=== PATIENT | male | born 1965 | race Caucasian/White ===

== ENCOUNTER → 2023-05-19 09:20 | Outpatient (REF) | payer BC, SELFPAY ==
[2023-05-19 10:48] LABS: % Basophils 0.5 % (0-2); % Immature Granulocytes 0.5 % (0-0.5); % Lymphocytes 10.6 % (20.5-51.1); % Neutrophils 71.4 % (42.2-75.2); Absolute Eosinophils 0.1 10^3/uL (0-0.7); Absolute Lymphocytes 0.7 10^3/uL (1.2-3.4); Absolute Neutrophils 4.7 10^3/uL (1.4-6.5); Hematocrit 29.5 % (39.0-52.0); Hemoglobin 8.9 g/dL (13.0-18.0); Mean Corp Hgb Conc. 30.2 g/dL (33.0-37.0); Mean Corpuscular Volume 92.8 fL (80.0-94.0); Mean Platelet Volume 9.4 fL (7.4-10.4); Nucleated Red Blood Cells % 0 % (-); Platelet Count 304 10^3/uL (130-400); Red Blood Cell Count 3.18 10^6/uL (4.70-6.10); Red Cell Dist. Width 15.4 % (11.5-14.5); White Blood Cell Count 6.6 10^3/uL (4.8-10.8)
[2023-05-19 10:53] LABS: Albumin 4.3 g/dl (3.5-5.0); Blood Urea Nitrogen 68 mg/dl (9-20); Calcium 8.9 mg/dl (8.4-10.2); Carbon Dioxide 14 mmol/L (22-30); Chloride 107 mmol/L (98-107); Glucose 87 mg/dl (70-99); HDL Cholesterol 44 mg/dl; LDL Cholesterol, Calculated 54 mg/dl; Magnesium 1.9 mg/dl (1.6-2.3); Phosphorus 5.5 mg/dl (2.5-4.5); Potassium 4.8 mmol/L (3.5-5.1); Sodium 132 mmol/L (135-145); Total Cholesterol 117 mg/dl (50-199); Triglyceride 97 mg/dl (10-149); Very Low Density Lipoprotein 19 mg/dl (0-30); eGFR 28.87
[2023-05-19 10:59] LABS: Vitamin D, 25-OH*** 63.1 ng/mL (30-80)
[2023-05-19 12:35] LABS: Protein/creatinine Ratio 1.3; Urine Protein 31 mg/dl
[2023-05-21 14:48] LABS: BK Qnt NAAT IU/mL, Plasma Not Detected; BK Qnt NAAT Interp, Plasma Not Detected (Not Detected); BK Qnt NAAT log IU/mL, Plasma Not Detected log IU/mL
[2023-05-22 10:01] LABS: Intact PTH 140.6 pg/ml (13.6-85.8)
== END ==
LOC: REG 09:20
PROVIDERS: ATTENDING PHYSICIAN Student in an Organized Health Care Education/Training Program; FAMILY PHYSICIAN Family Medicine
DX: D84.9 Immunodeficiency, unspecified (principal); R80.1 Persistent proteinuria, unspecified; Z94.0 Kidney transplant status; E55.9 Vitamin D deficiency, unspecified; N25.0 Renal osteodystrophy
CPT/HCPCS: 36415; 80061; 80069; 82306; 82570; 83735; 83970; 84156; 85025; 87799

== ENCOUNTER → 2023-06-28 12:02 | Outpatient (REF) | payer BC, SELFPAY ==
[2023-06-28 13:37] LABS: Urine Albumin 1+ (Neg - Trace); Urine Bilirubin Negative (Negative); Urine Character Clear (Clear); Urine Color Yellow; Urine Glucose Negative (Negative); Urine Ketone Negative (Negative); Urine Leukocyte 2+ (Negative); Urine Nitrite Positive (Negative); Urine Occult Blood Trace (Negative); Urine Specific Gravity 1.005 (<1.030); Urine Urobilinogen Negative (Neg - 1+)
[2023-06-28 14:04] LABS: Urine Bacteria Few (Negative); Urine Red Blood Cell 0-2 /HPF (0-2); Urine White Cell 21-25 /HPF (0-5)
[2023-06-28 14:31] LABS: Albumin 4.5 g/dl (3.5-5.0); Blood Urea Nitrogen 75 mg/dl (9-20); Calcium 9.5 mg/dl (8.4-10.2); Carbon Dioxide 24 mmol/L (22-30); Chloride 103 mmol/L (98-107); Glucose 94 mg/dl (70-99); Phosphorus 5.2 mg/dl (2.5-4.5); Potassium 4.7 mmol/L (3.5-5.1); Sodium 136 mmol/L (135-145); eGFR 25.05
== END ==
LOC: REG 12:02
PROVIDERS: ATTENDING PHYSICIAN Family Medicine
DX: R30.0 Dysuria (principal)
CPT/HCPCS: 36415; 80069; 81003; 81015; 87086

== ENCOUNTER → 2023-07-08 12:20 | Outpatient (REF) | payer BC, SELFPAY ==
[2023-07-08 13:40] LABS: % Basophils 0.9 % (0-2); % Eosinophils 1.5 % (0-6); % Immature Granulocytes 0.6 % (0-0.5); % Lymphocytes 14.1 % (20.5-51.1); % Monocytes 14.7 % (1.7-9.3); % Neutrophils 68.2 % (42.2-75.2); Absolute Basophils 0.1 10^3/uL (0-0.2); Absolute Eosinophils 0.1 10^3/uL (0-0.7); Absolute Lymphocytes 0.9 10^3/uL (1.2-3.4); Absolute Neutrophils 4.6 10^3/uL (1.4-6.5); Hematocrit 29.7 % (39.0-52.0); Mean Corp Hgb Conc. 30.3 g/dL (33.0-37.0); Mean Corpuscular Hgb 27.4 pg (27.0-31.0); Mean Corpuscular Volume 90.3 fL (80.0-94.0); Mean Platelet Volume 9.4 fL (7.4-10.4); Nucleated Red Blood Cells % 0 % (-); Platelet Count 349 10^3/uL (130-400); Red Blood Cell Count 3.29 10^6/uL (4.70-6.10); Red Cell Dist. Width 16.6 % (11.5-14.5); White Blood Cell Count 6.7 10^3/uL (4.8-10.8)
[2023-07-08 13:55] LABS: Albumin 4.3 g/dl (3.5-5.0); Blood Urea Nitrogen 54 mg/dl (9-20); Calcium 9.3 mg/dl (8.4-10.2); Carbon Dioxide 23 mmol/L (22-30); Chloride 104 mmol/L (98-107); Glucose 94 mg/dl (70-99); HDL Cholesterol 38 mg/dl; LDL Cholesterol, Calculated 31 mg/dl; Magnesium 2.1 mg/dl (1.6-2.3); Phosphorus 4.4 mg/dl (2.5-4.5); Potassium 5.1 mmol/L (3.5-5.1); Sodium 135 mmol/L (135-145); Total Cholesterol 86 mg/dl (50-199); Triglyceride 86 mg/dl (10-149); Very Low Density Lipoprotein 17 mg/dl (0-30); eGFR 26.16
[2023-07-08 14:11] LABS: Vitamin D, 25-OH*** 86.5 ng/mL (30-80)
[2023-07-10 18:08] LABS: Intact PTH 151.3 pg/ml (13.6-85.8)
== END ==
LOC: REG 12:20
PROVIDERS: ATTENDING PHYSICIAN Internal Medicine Nephrology; FAMILY PHYSICIAN Family Medicine
DX: Z94.0 Kidney transplant status (principal); E55.9 Vitamin D deficiency, unspecified; N25.0 Renal osteodystrophy
CPT/HCPCS: 36415; 80061; 80069; 82306; 83735; 83970; 85025

== ENCOUNTER → 2023-07-28 13:03 | Outpatient (REF) | payer BC, SELFPAY ==
[2023-07-28 14:15] LABS: % Basophils 0.8 % (0-2); % Eosinophils 2.1 % (0-6); % Immature Granulocytes 0.3 % (0-0.5); % Lymphocytes 11.9 % (20.5-51.1); % Monocytes 11.3 % (1.7-9.3); % Neutrophils 73.6 % (42.2-75.2); Absolute Basophils 0.1 10^3/uL (0-0.2); Absolute Eosinophils 0.1 10^3/uL (0-0.7); Absolute Lymphocytes 0.8 10^3/uL (1.2-3.4); Absolute Monocytes 0.7 10^3/uL (0.1-0.6); Absolute Neutrophils 4.8 10^3/uL (1.4-6.5); Hematocrit 30.1 % (39.0-52.0); Hemoglobin 8.9 g/dL (13.0-18.0); Mean Corp Hgb Conc. 29.6 g/dL (33.0-37.0); Mean Corpuscular Hgb 26.2 pg (27.0-31.0); Mean Corpuscular Volume 88.5 fL (80.0-94.0); Mean Platelet Volume 9.4 fL (7.4-10.4); Nucleated Red Blood Cells % 0 % (-); Platelet Count 325 10^3/uL (130-400); Red Cell Dist. Width 16.7 % (11.5-14.5); White Blood Cell Count 6.5 10^3/uL (4.8-10.8)
[2023-07-28 14:59] LABS: Protein/creatinine Ratio 1.9; Urine Protein 116 mg/dl
[2023-07-28 16:05] LABS: Albumin 4.1 g/dl (3.5-5.0); Blood Urea Nitrogen 68 mg/dl (9-20); Calcium 9.2 mg/dl (8.4-10.2); Carbon Dioxide 21 mmol/L (22-30); Chloride 102 mmol/L (98-107); Glucose 80 mg/dl (70-99); Iron 41 ug/dl (49-181); Phosphorus 5.3 mg/dl (2.5-4.5); Potassium 4.6 mmol/L (3.5-5.1); Sodium 136 mmol/L (135-145); eGFR 27.38
[2023-07-28 16:13] LABS: Intact PTH 167.5 pg/ml (13.6-85.8); Percent Saturation 9 % (20-50); Total Iron Binding Capacity 422 ug/dl (261-462)
== END ==
LOC: REG 13:03
PROVIDERS: ATTENDING PHYSICIAN Family Medicine
DX: D63.8 Anemia in other chronic diseases classified elsewhere (principal); Z94.0 Kidney transplant status; N18.4 Chronic kidney disease, stage 4 (severe)
CPT/HCPCS: 36415; 80069; 82570; 82728; 83540; 83550; 83970; 84156; 85025

== ENCOUNTER 2023-08-24 16:30 | Emergency (ER) | payer BC, SELFPAY ==
[2023-08-24 16:31] VITALS: BP 129/87
--- NOTE | 2023-08-24 19:17 | ED.GENMED ---
Addendum entered and electronically signed by Luis Young MD 08/24/23 20:24:
Patient with some increased oozing and was changed to a anterior packing. Good control. Start amoxicillin and close follow-up
Original Note:
History of Present Illness
General
Chief Complaint: Nose Bleed
Source: patient and spouse
Exam Limitations: none
Time Seen by Provider: 08/24/23 17:23
History of Present Illness
History of Present Illness:
Left nares epistaxis after blowing his nose. Patient is on aspirin, clopidogrel, Eliquis. History of nosebleed in March of this year. No other complaints
Phy Exam
Physical Exam
Physical Exam:
General: Nontoxic appearing in no distress
Skin: Warm and dry, no rash
Neuro: Alert, nontoxic, grossly nonfocal
Psychiatric: Good eye contact and appropriate
ENT: Mild bleeding left nares with a clot in the nares. Also clot posteriorly behind the pharynx. Source of bleeding appears to be along the mid septum.
Course
Vital Signs
Initial and Last Documented VS:
Initial Vital Signs
Temp Pulse Resp BP Pulse Ox
98.1 F 61 16 129/87 99
08/24/23 16:31 08/24/23 16:31 08/24/23 16:31 08/24/23 16:31 08/24/23 16:31
Last Documented Vital Signs
Temp Pulse Resp BP Pulse Ox
98.1 F 61 16 129/87 99
08/24/23 16:31 08/24/23 16:31 08/24/23 16:31 08/24/23 16:31 08/24/23 16:31
Procedures
Nosebleed
Drug treatment: Epinephrine
Treatment: Silver nitrate cautery and Merocel packing
Post treatment bleeding: other (Very minimal discoloration of the Merisel)
*Critical Care Note
Total Time (30-74mins, 75-104mins- exclusive of procedures): Not Applicable
Update Note
Update Note:
Dr. Kraft was actually here with another patient. Looked at the Mirasol. Joint decision with the patient and family elected to leave it alone. Will follow-up closely
ED Attending Note
-
Portions of this chart may have been created with voice recognition software.� Occasional wrong word or��sound alike� substitutions may have occurred due to the inherent limitations of voice recognition software.
Discharge Plan
Departure
Patient Disposition: Home (Routine Discharge)
Date of Disposition: 08/24/23
Time of Disposition: 19:17
Patient with high blood pressure during this ER visit?: Yes
Discharge Problem:
Left nares epistaxis
Instructions: Nosebleeds (DC), BLOOD PRESSURE
Prescriptions:
No Action
doxycycline monohydrate 100 mg capsule
100 mg PO BID Qty: 10 1RF
Referrals:
Evans Galdamez MD [Family Provider] -
Mesfin Morris MD [Active] - Tomorrow
Activity Restrictions/Additional Instructions:
Call your ENT tomorrow for close follow-up. Packing removal in 2 to 3 days
Interventions
Interventions:
*General Assessment Last Done: 08/24/23 16:31
*ED COVID-19 Vaccine History Last Done: 08/24/23 16:31
ED-EENT Assessment Last Done: 08/24/23 17:02
Discharge Date and Time
Print Language: MEXICAN
[2023-08-24] MEDS: AMOXIL 500 MG PO (20:25)
[2023-08-24 20:57] VITALS: BP 121/69
== END 2023-08-24 20:30 | disposition home or self-care (01) ==
LOC: EMR 16:30
PROVIDERS: EMERGENCY PHYSICIAN Emergency Medicine; FAMILY PHYSICIAN Family Medicine
DX: R04.0 Epistaxis (principal); R03.0 Elevated blood-pressure reading, without diagnosis of hypertension; Z79.82 Long term (current) use of aspirin; Z79.01 Long term (current) use of anticoagulants; Z88.2 Allergy status to sulfonamides; Z88.8 Allergy status to other drugs, medicaments and biological substances; Z91.041 Radiographic dye allergy status
CPT/HCPCS: 99283; 30901

== ENCOUNTER 2023-08-27 07:48 | Emergency (ER) | payer BC, SELFPAY ==
[2023-08-27 07:50] VITALS: BP 124/83
--- NOTE | 2023-08-27 08:24 | ED.GENMED ---
History of Present Illness
General
Chief Complaint: Nose Bleed
Source: patient
Exam Limitations: none
Time Seen by Provider: 08/27/23 08:14
History of Present Illness
History of Present Illness:
58-year-old male on aspirin Plavix and Eliquis times for recurrent nosebleed. He was here 2 days ago had the left side of the nose packed with the balloon. He notes the bleeding started out of the right side this morning at 630. He states it was
bleeding on the way here but at the moment seems to have slowed down. He denies any injury. No other complaints at this time. He was due to see ENT today
Phy Exam
Physical Exam
Physical Exam:
General: Well-appearing male no acute respiratory distress
HEENT: Normocephalic atraumatic left nasal cavity packed with the balloon. Dried blood in the right nasal cavity. Mild amount of old appearing blood in the posterior pharynx
Extremities: No cyanosis
Course
Vital Signs
Initial and Last Documented VS:
Initial Vital Signs
Temp Pulse Resp BP Pulse Ox
97.6 F 61 18 124/83 96
08/27/23 07:50 08/27/23 07:50 08/27/23 07:50 08/27/23 07:50 08/27/23 07:50
Last Documented Vital Signs
Temp Pulse Resp BP Pulse Ox
97.6 F 61 18 124/83 96
08/27/23 07:50 08/27/23 07:50 08/27/23 07:50 08/27/23 07:50 08/27/23 07:50
MDM/Problems Addressed
Differential Diagnosis Includes:
Patient had bleeding on the right side of nose when he has left side of his nose packed. On my exam, currently there is no bleeding. Patient was given some water to wash out his throat. Will continue to observe
*Critical Care Note
Total Time (30-74mins, 75-104mins- exclusive of procedures): Not Applicable
Update Note
Update Note:
Patient reexamined. No further bleeding. He has been upright without any bleeding. He has an appointment within the hour for ENT. I think he is stable for follow-up with them. No intervention at this time
ED Attending Note
-
Portions of this chart may have been created with voice recognition software.� Occasional wrong word or��sound alike� substitutions may have occurred due to the inherent limitations of voice recognition software.
Discharge Plan
Departure
Patient Disposition: Home (Routine Discharge)
Date of Disposition: 08/27/23
Time of Disposition: 09:01
Patient with high blood pressure during this ER visit?: No
Discharge Problem:
Epistaxis
Prescriptions:
No Action
doxycycline monohydrate 100 mg capsule
100 mg PO BID Qty: 10 1RF
amoxicillin 500 mg capsule
500 mg PO TID Qty: 21 0RF
Referrals:
Evans Galdamez MD [Family Provider] -
Activity Restrictions/Additional Instructions:
Please return if needed otherwise keep your appointment with ENT as scheduled
Discharge Date and Time
Print Language: PORTUGUESE
== END 2023-08-27 09:41 | disposition home or self-care (01) ==
LOC: EMR 07:48
PROVIDERS: EMERGENCY PHYSICIAN Student in an Organized Health Care Education/Training Program; FAMILY PHYSICIAN Family Medicine
DX: R04.0 Epistaxis (principal); Z79.01 Long term (current) use of anticoagulants
CPT/HCPCS: 99282

== ENCOUNTER 2023-09-27 18:08 | Emergency (ER) | payer BC, SELFPAY ==
[2023-09-27 18:09] VITALS: BP 128/87
[2023-09-27 18:39] VITALS: BMI 24.8
--- NOTE | 2023-09-27 19:01 | ED.GENMED ---
History of Present Illness
<Verena Beltre MD, Resident - Last Filed: 09/27/23 19:26>
General
Chief Complaint: Nose Bleed
Time Seen by Provider: 09/27/23 19:00
History of Present Illness
History of Present Illness:
The patient is a 58 year old male with a PMH of 5 kidney tx( 5 times) and AF who presented to ED today with a nose bleeding. his nose bleeding started around 5.30 pm from the right nostril. He denies any injury. No other complaints at this time.
He was seen by ENT on 08/27/23 for repeating nose bleedings and was catheterized. On examination he was not actively bleeding.
If applicable-neuro sx onset
Date of onset of symptoms: 09/27/23
Phy Exam
<Verena Beltre MD, Resident - Last Filed: 09/27/23 19:26>
Physical Exam
Physical Exam:
Blood was seen in his right nasal nostril and scar of catheterization on the anterior septum on the right side. when patient was seen, his nose was not actively bleeding.
General Physical Exam
General Presentation: no apparent distress
General age: appears older than age
General Skin: warm and dry
General Mental: alert
General Hydration: appears well hydrated
ENT Exam
ENT Exam: other
Additional ENT: Right nasal nostril blood ( dred) no active bleeding
Pulmonary Exam
Pulmonary Exam: no respiratory distress
Neurological Exam
Neurological Exam: alert and oriented x3
Course
<Verena Beltre MD, Resident - Last Filed: 09/27/23 19:26>
Vital Signs
Initial and Last Documented VS:
Initial Vital Signs
Temp Pulse Resp BP Pulse Ox
97.8 F 71 20 128/87 91
09/27/23 18:09 09/27/23 18:09 09/27/23 18:09 09/27/23 18:09 09/27/23 18:09
Last Documented Vital Signs
Temp Pulse Resp BP Pulse Ox
97.8 F 71 20 128/87 91
09/27/23 18:09 09/27/23 18:09 09/27/23 18:09 09/27/23 18:09 09/27/23 18:09
<Darvin Maldonado DO - Last Filed: 09/27/23 20:01>
Vital Signs
Initial and Last Documented VS:
Initial Vital Signs
Temp Pulse Resp BP Pulse Ox
97.8 F 71 20 128/87 91
09/27/23 18:09 09/27/23 18:09 09/27/23 18:09 09/27/23 18:09 09/27/23 18:09
Last Documented Vital Signs
Temp Pulse Resp BP Pulse Ox
97.8 F 71 20 128/87 91
09/27/23 18:09 09/27/23 18:09 09/27/23 18:09 09/27/23 18:09 09/27/23 18:09
Procedures
<Darvin Maldonado DO - Last Filed: 09/27/23 20:01>
Nosebleed
Drug treatment: Epinephrine
Treatment: local pressure applied and Silver nitrate cautery
Post treatment bleeding: none- good control
<Darvin Maldonado DO - Last Filed: 09/27/23 20:01>
*Critical Care Note
Total Time (30-74mins, 75-104mins- exclusive of procedures): Not Applicable
<Darvin Maldonado DO - Last Filed: 09/27/23 20:01>
Update Note
Update Note:
good control after epi and silver nitrate
ED Attending Note
<Verena Beltre MD, Resident - Last Filed: 09/27/23 19:26>
-
Portions of this chart may have been created with voice recognition software.� Occasional wrong word or��sound alike� substitutions may have occurred due to the inherent limitations of voice recognition software.
<Darvin Maldonado, DO - Last Filed: 09/27/23 20:01>
ED Attending Note
Patient seen and examined by attending physician: Yes
I performed a history and physical exam of patient and discussed management with resident, I reviewed resident's note and agree with documented findings and plan of care.: Yes
ED Attending Note:
seen with resident
Atraumatic recurrent right-sided nosebleeds seen ENT previously for cautery uses Eliquis and aspirin, has dry nose been using nasal spray and saline, oozing from his right lateral nose, cotton pledget with epinephrine placed will try silver nitrate
patient and family updated
Discharge Plan
Departure
Patient Disposition: Home (Routine Discharge)
Date of Disposition: 09/27/23
Time of Disposition: 20:01
Patient with high blood pressure during this ER visit?: No
Condition: Good
Discharge Problem:
Bleeding nose
Instructions: Nosebleeds (DC)
Prescriptions:
No Action
doxycycline monohydrate 100 mg capsule
100 mg PO BID Qty: 10 1RF
amoxicillin 500 mg capsule
500 mg PO TID Qty: 21 0RF
Referrals:
Evans Galdamez MD [Family Provider] -
Mesfin Morris MD [Active] - Follow up in 1 week
Interventions
Interventions:
*Risk Screen - Suicide Last Done: 09/27/23 18:09
*General Assessment Last Done: 09/27/23 18:09
*Neglect/Abuse Screening Last Done: 09/27/23 18:09
ED- Fall Risk Assessment Last Done: 09/27/23 19:30
*ED COVID-19 Vaccine History Last Done: 09/27/23 18:39
ED-EENT Assessment Last Done: 09/27/23 19:05
Discharge Date and Time
Print Language: [place]
== END 2023-09-27 20:28 | disposition home or self-care (01) ==
LOC: EMR 18:08
PROVIDERS: EMERGENCY PHYSICIAN Emergency Medicine; FAMILY PHYSICIAN Family Medicine
DX: R04.0 Epistaxis (principal); Z79.02 Long term (current) use of antithrombotics/antiplatelets
CPT/HCPCS: 99282; 30901

== ENCOUNTER → 2023-10-06 08:15 | Outpatient (REF) | payer BC, SELFPAY ==
[2023-10-06 09:58] LABS: % Basophils 0.7 % (0-2); % Eosinophils 1.2 % (0-6); % Immature Granulocytes 0.4 % (0-0.5); % Lymphocytes 12.6 % (20.5-51.1); % Monocytes 15.1 % (1.7-9.3); Absolute Eosinophils 0.1 10^3/uL (0-0.7); Absolute Lymphocytes 0.7 10^3/uL (1.2-3.4); Absolute Monocytes 0.9 10^3/uL (0.1-0.6); Absolute Neutrophils 3.9 10^3/uL (1.4-6.5); Hematocrit 31.6 % (39.0-52.0); Hemoglobin 9.6 g/dL (13.0-18.0); Mean Corp Hgb Conc. 30.4 g/dL (33.0-37.0); Mean Corpuscular Hgb 29.6 pg (27.0-31.0); Mean Corpuscular Volume 97.5 fL (80.0-94.0); Mean Platelet Volume 10.5 fL (7.4-10.4); Nucleated Red Blood Cells % 0 % (-); Platelet Count 244 10^3/uL (130-400); Red Blood Cell Count 3.24 10^6/uL (4.70-6.10); Red Cell Dist. Width 22.1 % (11.5-14.5); White Blood Cell Count 5.6 10^3/uL (4.8-10.8)
[2023-10-06 10:36] LABS: Anisocytosis 1+; Hypochromasia 1+; Normal RBC Morphology No
[2023-10-06 10:37] LABS: Acanthocytes 1+; Ovalocytes 1+; Polychromasia 1+
[2023-10-06 11:13] LABS: Blood Urea Nitrogen 46 mg/dl (9-20); Calcium 9.2 mg/dl (8.4-10.2); Carbon Dioxide 25 mmol/L (22-30); Chloride 105 mmol/L (98-107); Glucose 80 mg/dl (70-99); HDL Cholesterol 33 mg/dl; LDL Cholesterol, Calculated 56 mg/dl; Potassium 4.2 mmol/L (3.5-5.1); Sodium 141 mmol/L (135-145); Total Cholesterol 109 mg/dl (50-199); Triglyceride 103 mg/dl (10-149); Very Low Density Lipoprotein 20 mg/dl (0-30); eGFR 31.71
== END ==
LOC: REG 08:15
PROVIDERS: ATTENDING PHYSICIAN Family Medicine; OTHER PHYSICIAN Internal Medicine Advanced Heart Failure and Transplant Cardiology
DX: Z98.61 Coronary angioplasty status (principal); E78.2 Mixed hyperlipidemia; N18.4 Chronic kidney disease, stage 4 (severe)
CPT/HCPCS: 36415; 80048; 80061; 85025

== ENCOUNTER 2023-10-29 08:13 | Outpatient (RCR) | payer BC, SELFPAY | END 2023-10-29 23:59 | disposition home or self-care (01) | LOC: CRHB 08:13 | PROVIDERS: ATTENDING PHYSICIAN Internal Medicine Advanced Heart Failure and Transplant Cardiology | DX: Z95.4 Presence of other heart-valve replacement (principal) | CPT/HCPCS: 93798; G0422; G0423 ==

== ENCOUNTER → 2023-11-18 11:05 | Outpatient (REF) | payer BC, SELFPAY ==
[2023-11-18 12:03] LABS: % Immature Granulocytes 0.2 % (0-0.5); % Lymphocytes 6.6 % (20.5-51.1); % Monocytes 5.9 % (1.7-9.3); % Neutrophils 87.3 % (42.2-75.2); Absolute Lymphocytes 0.3 10^3/uL (1.2-3.4); Absolute Monocytes 0.3 10^3/uL (0.1-0.6); Absolute Neutrophils 4.5 10^3/uL (1.4-6.5); Hematocrit 31.4 % (39.0-52.0); Hemoglobin 9.7 g/dL (13.0-18.0); Mean Corp Hgb Conc. 30.9 g/dL (33.0-37.0); Mean Corpuscular Hgb 30.9 pg (27.0-31.0); Mean Platelet Volume 9.8 fL (7.4-10.4); Nucleated Red Blood Cells % 0 % (-); Platelet Count 213 10^3/uL (130-400); Red Blood Cell Count 3.14 10^6/uL (4.70-6.10); Red Cell Dist. Width 16.6 % (11.5-14.5); White Blood Cell Count 5.1 10^3/uL (4.8-10.8)
[2023-11-18 12:17] LABS: Urine Albumin Trace (Neg - Trace); Urine Bilirubin Negative (Negative); Urine Character Clear (Clear); Urine Color Yellow; Urine Glucose Negative (Negative); Urine Ketone Negative (Negative); Urine Leukocyte Negative (Negative); Urine Nitrite Negative (Negative); Urine Occult Blood Negative (Negative); Urine Specific Gravity 1.005 (<1.030); Urine Urobilinogen Negative (Neg - 1+)
[2023-11-18 12:23] LABS: NT-proBNP > 27000 pg/ml
[2023-11-18 12:49] LABS: ALT (SGPT) 45 U/L (0-50); AST (SGOT) 69 U/L (17-59); Albumin 4.3 g/dl (3.5-5.0); Alkaline Phosphatase 108 U/L (38-126); Blood Urea Nitrogen 79 mg/dl (9-20); Calcium 9.3 mg/dl (8.4-10.2); Carbon Dioxide 22 mmol/L (22-30); Chloride 98 mmol/L (98-107); Glucose 127 mg/dl (70-99); Iron 74 ug/dl (49-181); LDH 333 U/L (120-246); Magnesium 2.2 mg/dl (1.6-2.3); Phosphorus 4.5 mg/dl (2.5-4.5); Potassium 4.3 mmol/L (3.5-5.1); Sodium 137 mmol/L (135-145); Total Bilirubin 0.6 mg/dl (0.2-1.3); Total Protein 6.8 g/dl (6.3-8.2); eGFR 27.38
[2023-11-18 12:56] LABS: Protein/creatinine Ratio 1.2; Urine Protein 43 mg/dl
[2023-11-18 12:58] LABS: Percent Saturation 18 % (20-50); Total Iron Binding Capacity 409 ug/dl (261-462)
== END ==
LOC: REG 11:05
PROVIDERS: ATTENDING PHYSICIAN Internal Medicine Nephrology; FAMILY PHYSICIAN Family Medicine
DX: I35.0 Nonrheumatic aortic (valve) stenosis (principal); Z94.0 Kidney transplant status; E61.1 Iron deficiency
CPT/HCPCS: 36415; 80053; 81003; 82570; 82728; 83540; 83550; 83615; 83735; 83880; 84100; 84156; 85025

== ENCOUNTER 2023-11-26 09:05 | Outpatient (RCR) | payer BC, SELFPAY | END 2023-11-26 23:59 | disposition home or self-care (01) | LOC: CRHB 09:05 | PROVIDERS: ATTENDING PHYSICIAN Internal Medicine Advanced Heart Failure and Transplant Cardiology; FAMILY PHYSICIAN Family Medicine | DX: Z95.4 Presence of other heart-valve replacement (principal) | CPT/HCPCS: G0422; G0423 ==

== ENCOUNTER → 2023-12-21 11:09 | Outpatient (REF) | payer BC, SELFPAY ==
[2023-12-21 16:37] LABS: % Basophils 0.7 % (0-2); % Eosinophils 1.4 % (0-6); % Immature Granulocytes 0.4 % (0-0.5); % Lymphocytes 12.3 % (20.5-51.1); % Monocytes 15.3 % (1.7-9.3); % Neutrophils 69.9 % (42.2-75.2); Absolute Eosinophils 0.1 10^3/uL (0-0.7); Absolute Lymphocytes 0.7 10^3/uL (1.2-3.4); Absolute Monocytes 0.9 10^3/uL (0.1-0.6); Absolute Neutrophils 3.9 10^3/uL (1.4-6.5); Hematocrit 37.5 % (39.0-52.0); Hemoglobin 11.6 g/dL (13.0-18.0); Mean Corp Hgb Conc. 30.9 g/dL (33.0-37.0); Mean Corpuscular Hgb 30.5 pg (27.0-31.0); Mean Corpuscular Volume 98.7 fL (80.0-94.0); Mean Platelet Volume 10.6 fL (7.4-10.4); Nucleated Red Blood Cells % 0 % (-); Platelet Count 230 10^3/uL (130-400); Red Cell Dist. Width 15.3 % (11.5-14.5); White Blood Cell Count 5.6 10^3/uL (4.8-10.8)
[2023-12-21 16:58] LABS: Albumin 4.5 g/dl (3.5-5.0); Blood Urea Nitrogen 71 mg/dl (9-20); Calcium 9.1 mg/dl (8.4-10.2); Carbon Dioxide 23 mmol/L (22-30); Chloride 100 mmol/L (98-107); Glucose 62 mg/dl (70-99); HDL Cholesterol 37 mg/dl; Iron 62 ug/dl (49-181); LDL Cholesterol, Calculated 56 mg/dl; Phosphorus 4.5 mg/dl (2.5-4.5); Potassium 5.1 mmol/L (3.5-5.1); Sodium 140 mmol/L (135-145); Total Cholesterol 114 mg/dl (50-199); Triglyceride 106 mg/dl (10-149); Very Low Density Lipoprotein 21 mg/dl (0-30); eGFR 30.13
[2023-12-21 17:07] LABS: Percent Saturation 14 % (20-50); Total Iron Binding Capacity 420 ug/dl (261-462)
[2023-12-21 17:25] LABS: TSH 2.82 uIU/ml (0.47-4.68)
== END ==
LOC: REG 11:09
PROVIDERS: ATTENDING PHYSICIAN Family Medicine
DX: I42.9 Cardiomyopathy, unspecified (principal); G47.19 Other hypersomnia; D63.8 Anemia in other chronic diseases classified elsewhere; N18.4 Chronic kidney disease, stage 4 (severe)
CPT/HCPCS: 36415; 80061; 80069; 82728; 83540; 83550; 84443; 85025

== ENCOUNTER 2023-12-27 08:54 | Outpatient (RCR) | payer BC, SELFPAY | END 2023-12-27 23:59 | disposition home or self-care (01) | LOC: CRHB 08:54 | PROVIDERS: ATTENDING PHYSICIAN Internal Medicine Advanced Heart Failure and Transplant Cardiology; FAMILY PHYSICIAN Family Medicine | DX: Z95.4 Presence of other heart-valve replacement (principal) | CPT/HCPCS: G0422; G0423 ==

== ENCOUNTER 2024-01-17 08:42 | Outpatient (RCR) | payer BC, SELFPAY | END 2024-01-17 23:59 | disposition home or self-care (01) | LOC: CRHB 08:42 | PROVIDERS: ATTENDING PHYSICIAN Internal Medicine Advanced Heart Failure and Transplant Cardiology; FAMILY PHYSICIAN Family Medicine | DX: Z95.4 Presence of other heart-valve replacement (principal) | CPT/HCPCS: G0422; G0423 ==

== ENCOUNTER → 2024-03-24 09:22 | Outpatient (REF) | payer BC, SELFPAY ==
[2024-03-24 10:13] LABS: Urine Albumin 2+ (Neg - Trace); Urine Bilirubin 1+ (Negative); Urine Character Mucous (Clear); Urine Color Yellow; Urine Glucose Negative (Negative); Urine Ketone Trace (Negative); Urine Leukocyte 2+ (Negative); Urine Nitrite Negative (Negative); Urine Occult Blood 1+ (Negative); Urine Urobilinogen 1+ (Neg - 1+)
[2024-03-24 10:55] LABS: Urine Bacteria Many (Negative); Urine White Cell >100 /HPF (0-5)
[2024-03-24 10:56] LABS: Urine Squamous Cell SEEN /LPF (Few)
== END ==
LOC: REG 09:22
PROVIDERS: ATTENDING PHYSICIAN Internal Medicine Nephrology
DX: R33.9 Retention of urine, unspecified (principal)
CPT/HCPCS: 81003; 81015; 87086

== ENCOUNTER → 2024-04-08 09:55 | Outpatient (REF) | payer BC, SELFPAY ==
[2024-04-10 16:20] LABS: IL-6 (Interleukin-6) 9.2 pg/mL (<=2.0)
== END ==
LOC: REG 09:55
PROVIDERS: ATTENDING PHYSICIAN Internal Medicine; FAMILY PHYSICIAN Family Medicine; REFERRING PHYSICIAN Internal Medicine Nephrology
DX: Z94.0 Kidney transplant status (principal)
CPT/HCPCS: 36415; 82728; 83529; 86140

== ENCOUNTER → 2024-05-13 10:20 | Outpatient (REF) | payer BC, SELFPAY ==
[2024-05-13 11:14] LABS: % Basophils 0.5 % (0-2); % Eosinophils 1.6 % (0-6); % Immature Granulocytes 0.4 % (0-0.5); % Lymphocytes 9.1 % (20.5-51.1); % Monocytes 10.6 % (1.7-9.3); % Neutrophils 77.8 % (42.2-75.2); Absolute Basophils 0.1 10^3/uL (0-0.2); Absolute Eosinophils 0.2 10^3/uL (0-0.7); Absolute Immature Granulocytes 0.1 10^3/uL (0-0.05); Absolute Monocytes 1.2 10^3/uL (0.1-0.6); Absolute Neutrophils 8.9 10^3/uL (1.4-6.5); Hematocrit 33.6 % (39.0-52.0); Hemoglobin 10.5 g/dL (13.0-18.0); Mean Corp Hgb Conc. 31.3 g/dL (33.0-37.0); Mean Corpuscular Hgb 29.2 pg (27.0-31.0); Mean Corpuscular Volume 93.6 fL (80.0-94.0); Mean Platelet Volume 8.9 fL (7.4-10.4); Nucleated Red Blood Cells % 0 % (-); Platelet Count 275 10^3/uL (130-400); Red Blood Cell Count 3.59 10^6/uL (4.70-6.10); Red Cell Dist. Width 16.9 % (11.5-14.5); White Blood Cell Count 11.4 10^3/uL (4.8-10.8)
[2024-05-13 12:35] LABS: Folate > 20.0 ng/ml (2.76-20); Vitamin B12 714 pg/ml (239-931)
[2024-05-15 17:53] LABS: IL-6 (Interleukin-6) 7.8 pg/mL (<=2.0)
== END ==
LOC: REG 10:20
PROVIDERS: ATTENDING PHYSICIAN Family Medicine
DX: R20.2 Paresthesia of skin (principal)
CPT/HCPCS: 36415; 82607; 82746; 83529; 83921; 85025

== ENCOUNTER → 2024-10-19 08:49 | Outpatient (REF) | payer BC, SELFPAY ==
[2024-10-19 09:25] LABS: Hematocrit 36.9 % (39.0-52.0); Hemoglobin 10.7 g/dL (13.0-18.0); Mean Corp Hgb Conc. 29.0 g/dL (33.0-37.0); Mean Corpuscular Volume 92.9 fL (80.0-94.0); Nucleated Red Blood Cells % 0 % (-); Platelet Count 151 10^3/uL (130-400); Red Cell Dist. Width 19.6 % (11.5-14.5)
[2024-10-19 10:30] LABS: ALT (SGPT) 19 U/L (0-50); AST (SGOT) 32 U/L (17-59); Albumin 3.6 g/dl (3.5-5.0); Alkaline Phosphatase 251 U/L (38-126); Blood Urea Nitrogen 26 mg/dl (9-20); Calcium 10.2 mg/dl (8.4-10.2); Carbon Dioxide 24 mmol/L (22-30); Chloride 97 mmol/L (98-107); Glucose 74 mg/dl (70-99); HDL Cholesterol 31 mg/dl; Iron 58 ug/dl (49-181); LDL Cholesterol, Calculated 63 mg/dl; Potassium 4.3 mmol/L (3.5-5.1); Sodium 131 mmol/L (135-145); Total Protein 8.0 g/dl (6.3-8.2); Very Low Density Lipoprotein 19 mg/dl (0-30); eGFR 22.03
[2024-10-19 10:39] LABS: Total Iron Binding Capacity 336 ug/dl (261-462)
[2024-10-19 11:36] LABS: Free T3 3.94 pg/ml (2.77-5.27)
[2024-10-19 11:49] LABS: Cortisol, Random 7.7 ug/dl; TSH 5.01 uIU/ml (0.47-4.68)
[2024-10-19 11:53] LABS: Ferritin 111.0 ng/ml (17.9-464.0)
== END ==
LOC: REG 08:49
PROVIDERS: ATTENDING PHYSICIAN Family Medicine
DX: G47.19 Other hypersomnia (principal); R63.4 Abnormal weight loss; N18.6 End stage renal disease; D63.1 Anemia in chronic kidney disease; Z99.2 Dependence on renal dialysis; I67.89 Other cerebrovascular disease
CPT/HCPCS: 36415; 80053; 80061; 82024; 82533; 82550; 82728; 83540; 83550; 84439; 84443; 84481; 85025

== ENCOUNTER → 2025-02-01 08:38 | Outpatient (REF) | payer BC, SELFPAY ==
[2025-02-01 10:07] LABS: Uric Acid 4.5 mg/dl (3.5-8.5)
[2025-02-01 10:36] LABS: C-Reactive Protein 16.30 mg/L (0.0-10.00)
[2025-02-01 19:10] LABS: Hepatitis B Surface Antigen Negative (Negative)
[2025-02-01 19:28] LABS: Hepatitis A Antibody, Total Negative (Negative)
== END ==
LOC: REG 08:38
PROVIDERS: FAMILY PHYSICIAN Family Medicine
DX: M35.3 Polymyalgia rheumatica (principal)
CPT/HCPCS: 36415; 84550; 85652; 86140; 86704; 86706; 86708; 87340